=== PATIENT | female | born 1945 | race Caucasian/White ===

== ENCOUNTER → 2018-10-31 | Outpatient (CLI) | payer MEDICARE, BC ==
[~2018-10-31] MED LIST: ALBU8.5H IH; ATOR10TA24 PO; AZIT-17 PO; CETI-176 PO; LEVO75TA73 PO; METO25TA23 PO; PRED20TA6 PO
--- NOTE | 2018-10-31 10:44 | RADIOLOGY IMAGING REPORT ---
FACILITY: [facility] PATIENT NAME: Rand Carias : 1945 MR: [id number] V: [id number] EXAM DATE: ORDERING PHYSICIAN: SYEDA MATUTE TECHNOLOGIST[place] [facility] [place] C[place] : 1945 Visit/Account:[id number] Date of Sevice: 10/31/2018 CHEST PA LAT COMPARISONS: 2 view chest dated May 29, 2017 ADDITIONAL PERTINENT HISTORY: History of bronchitis and cough with chest pain for the past 2 weeks. FINDINGS: Cardiomediastinal silhouette: Negative. 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 Otherwise negative Lung hercules: Negative. Pleural spaces: Negative. Osseous structures: Mild spondylitic change involving the thoracic spine. Surrounding soft tissues: Negative. IMPRESSION: No evidence of acute cardiopulmonary disease. Report Dictated By: Seb Gallegos MD at 10/31/2018 10:34 AM Report E-Signed By: Seb Gallegos MD at 10/31/2018 10:38 AM WSN:[email or web address]
== END ==
LOC: RAD 09:54
PROVIDERS: ATTEND Internal Medicine
DX: J40 Bronchitis, not specified as acute or chronic (principal); I10 Essential (primary) hypertension
CPT/HCPCS: 71046